=== PATIENT | female | born 1970 | race African-American/Black ===

== ENCOUNTER → 2016-11-25 | Outpatient (CLI) | payer BC ==
[~2016-11-25] MED LIST: COUMADIN4 MG PO; COUMADIN5 MG PO; DEXILANT60 MG PO; FUROSEMIDE40 MG PO; LOVENOX80 MG/0.8 SQ; [UNRECOGNIZED DRUG - OTHER] PO
--- NOTE | ~2016-11-25 | US140 ---
[facility] A Service of [facility] RADIOLOGY TEXT RESULTS PATIENT: DENISE ZHANG LOCATION: CNIV : 74 UNIT #: [id number] AGE: [address]: Adán Augustin MD SEX: F ORDER DR: [id number] [facility] [address] [place], [place] [address] [id number] O MR#: [id number] Acc #: [id number] NAME: DENISE ZHANG : 1970 SEX: F STUDY DATE/TIME: 11/25/2016 9:32 UNIT: CNIV ROOM: STUDY DESCRIPTION: UE Veins Unilat or Ltd Stdy Attending Physician: Adán Augustin M.D. Referring Physician: Adán Augustin M.D. Ordering Physician: Adán Augustin M.D. Primary Care Physician: Cruz Khoury M.D. MEDICAL IMAGING REPORT This report is preliminary unless electronic signature is present EXAM Left upper extremity, venous ultrasound. DATE OF EXAM 11/25/2016 HISTORY Acute embolism. History of DVT left upper extremity intermittent swelling. NOTE The findings have been reviewed directly by telephone with Dr. Augustin at time of this dictation, 1618 hours, 11/26/2016. COMPARISON Comparison to multiple prior studies dating to September 2011. FINDINGS The left internal jugular vein is abnormally diminished in size with concentric mural thickening. 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 Appearance on today's study is most consistent with chronic changes from prior DVT. The left subclavian vein is patent. Small in caliber. Noncompressible. Findings consistent with sequelae from prior DVT. 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 There is no indication of acute subclavian thrombosis. The axillary vein is patent and relatively small in caliber as well. It is compressible. Findings probably reflect chronic change as well. There is no indication of axillary vein acute deep venous thrombosis. Of the paired brachial veins, the more superficial appears patent with evidence of flow. The deep brachial vein contains echogenic material and is noncompressible. While it is relatively small in caliber, I do not see STS. [facility] A Service of [facility] RADIOLOGY TEXT RESULTS PATIENT: DENISE ZHANG LOCATION: CNIV : 74 UNIT #: [id number] AGE: [address]: Adán Augustin MD SEX: F ORDER DR: evidence of brachial vein DVT on studies dating to 2011, and the appearance on the current examination is more concerning for acute DVT in the deep brachial vein. This was discussed directly with Dr. Augustin. The basilic vein is patent. The cephalic vein in the mid upper arm shows normal compressibility. There are some thin internal septations which may be a reflection of prior superficial venous thrombosis and recanalization. I have no indication of acute superficial venous thrombosis. IMPRESSION 1. Findings discussed directly by telephone with Dr. Augustin at time of this dictation. Findings indicative of acute DVT in the deep left upper extremity brachial vein. The vein contains echogenic material. There is noncompressibility and absence of flow on color Doppler interrogation. 2. The more superficial of the paired left upper extremity brachial veins is patent. The left internal jugular, subclavian and axillary veins are patent with changes outlined above most consistent with sequelae of remote DVT. 3. Findings suggestive of sequelae of prior superficial venous thrombosis in the cephalic vein. There is no evidence of acute superficial venous thrombosis. Dictated by... Rusty Moy M.D. THIS IS AN ELECTRONICALLY VERIFIED REPORT Rusty Moy M.D. at 11/28/2016 8:22 PM [place] TD: 11/26/2016 20:02 JOB #: [id number] MEDICAL IMAGING REPORT COPY
== END | disposition home or self-care (01) ==
LOC: CNIV 08:42
DX: I82.890 Acute embolism and thrombosis of other specified veins (principal)
CPT/HCPCS: 93971